=== PATIENT | female | born 1930 | race Caucasian/White ===

== ENCOUNTER 2017-05-18 11:30 | Emergency (ER) | payer OTHER ==
[~2017-05-18] VITALS: Ht 167.6 cm; Wt 75.0 kg
[2017-05-18] MEDS ORDERED: ELIMITE 5% CREA60 GM TP (12:40)
[2017-05-18 22:27] VITALS: BP 135/78
== END 2017-05-19 00:22 | disposition home or self-care (01) ==
LOC: EME 11:30
DX: R21 Rash and other nonspecific skin eruption (principal)
CPT/HCPCS: 99281; 99284

== ENCOUNTER 2017-06-09 16:45 | Emergency (ER) | payer OTHER ==
[~2017-06-09] VITALS: Ht 167.6 cm; Wt 61.2 kg
[~2017-06-09 16:45] MED LIST: ELIMITE 5% CREA60 GM TP
[2017-06-09] MEDS ORDERED: TYLENOL ARTHRI650 MG PO (19:46)
[2017-06-09 21:48] VITALS: BP 94/43
== END 2017-06-09 21:49 | disposition home or self-care (01) ==
LOC: EME → EDBD 16:45 → EME 16:45
PROC: 3E0234Z Introduction of Serum, Toxoid and Vaccine into Muscle, Percutaneous Approach (ICD-10-PCS; principal; 2017-06-09)
DX: S00.83XA Contusion of other part of head, initial encounter (principal); W18.30XA Fall on same level, unspecified, initial encounter; Y92.192 Bathroom in other specified residential institution as the place of occurrence of the external cause; Z23 Encounter for immunization; I25.10 Atherosclerotic heart disease of native coronary artery without angina pectoris; E03.9 Hypothyroidism, unspecified; F03.90 Unspecified dementia, unspecified severity, without behavioral disturbance, psychotic disturbance, mood disturbance, and anxiety
CPT/HCPCS: 70450; 70486; 93005; 99281; 99285; J2060